=== PATIENT | male | born 1975 | race American Indian/Alaskan Native ===

== ENCOUNTER 2020-05-20 14:36 | Emergency (ER) | payer SELFPAY ==
--- NOTE | 2020-05-20 14:46 | Event Note ---
ED Screening Note ED Screening Note: ss chest pressure htn- on norvasc father just of covid hx anxiety smoker drinker tachycardia psh none has never had card kaur This initial assessment/diagnostic orders/clinical plan/treatment(s) is/are subject to change based on patients health status, clinical progression and re- assessment by fellow clinical providers in the ED. Further treatment and workup at subsequent clinical providers discretion. Patient/guardian urged not to elope from the ED as their condition may be serious if not clinically assessed and managed. Initial orders include: ro acs
[2020-05-20 15:35] LABS: Bilirubin,Urine NEG (Negative); Blood,Urine SM (Negative); Color,Urine Yellow (Yellow); Mucus,Urine FEW /HPF; Protein,Urine <15 mg/dL mg/dL (Negative); Urobilinogen,Urine < 2.0 mg/dL (<2.0); WBC,Urine < 1.0 /HPF (0.0-6.0)
--- NOTE | 2020-05-20 15:42 | XRay Report ---
CHEST 2 VIEWS INDICATION: MAIN. COMPARISON: None FINDINGS: Support devices: None. Heart: Within normal limits. Lungs/pleura: No acute air space or interstitial disease. No pneumothorax. Additional findings: None. IMPRESSION: No acute findings. Signer Name: Sg Ribeiro Jr, MD Signed: 05/20/2020 3:37 PM Workstation Name: [id number]
[2020-05-20 16:01] LABS: Basophils # (Auto) 0.1 K/mm3 (0.0-0.1); Basophils % (Auto) 0.6 % (0.0-1.8); Eosinophils # (Auto) 0.3 K/mm3 (0.0-0.4); Eosinophils % (Auto) 3.1 % (0.0-4.3); Hemoglobin 17.5 gm/dl (11.8-15.2); Lymphocytes % (Auto) 27.1 % (13.4-35.0); Mean Corpuscular HGB Conc 35 % (32-34); Mean Corpuscular Volume 92 fl (84-94); Monocytes # (Auto) 0.6 K/mm3 (0.0-0.8); Monocytes % (Auto) 5.6 % (0.0-7.3); Platelet Count 245 K/mm3 (140-440); Red Blood Count 5.44 M/mm3 (3.65-5.03); Red Cell Distribution Width 13.3 % (13.2-15.2)
[2020-05-20 16:24] LABS: Alanine Aminotransferase 71 units/L (7-56); Albumin 4.6 g/dL (3.9-5); BUN/Creatinine Ratio 13; Blood Urea Nitrogen 10 mg/dL (9-20); Calcium 9.3 mg/dL (8.4-10.2); Hemolysis Index 13
[2020-05-20] MEDS ORDERED: ZIPRASIDONE MESYLATE 20 MG VIAL IM ONE (20:19)
[2020-05-20] MEDS ORDERED: hydrOXYzine PAMOATE 25 MG CAP PO ONE (21:20)
--- NOTE | 2020-05-20 21:49 | Emergency Department Report ---
ED Chest Pain HPI - General Chief Complaint: Chest Pain Stated Complaint: HBP/CHEST PAIN Time Seen by Provider: 05/20/20 14:45 Source: patient Mode of arrival: Ambulatory Limitations: No Limitations - History of Present Illness Initial Comments: 44-year-old male with a past medical history of hypertension and anxiety presents to the hospital complaining of chest pain and elevated BP since yesterday. Patient states he checks his blood pressure on a daily basis. Blood pressure has been reading high yesterday and today. Since yesterday he has had a constant 10/10 headache and constant choking feeling to his throat and upper chest causing him to feel short of breath. Symptoms somewhat aggravated by activity. Patient is compliant with his Norvasc 10 mg every morning with last dose this morning. Patient has nausea without vomiting, diaphoresis, recent travel, calf tenderness, leg edema, history of PE/DVT. He does endorse that he has been more anxious lately. In the past he has been on Klonopin. However, since moving here from [place] 9 months ago he has not been able to establish a primary care doctor to be prescribed medication. He has experienced the of multiple family members due to Covid in [place] which is causing him more frustration, anger, and anxiety. Patient does smoke cigarettes. Patient requesting medication for anxiety. - Related Data Previous Rx's Medication Instructions Recorded Last Taken Type Aspirin 325 mg PO QDAY #30 tablet 05/20/20 Unknown Rx Ibuprofen [Motrin] 800 mg PO Q8HR PRN #20 tablet 05/20/20 Unknown Rx hydrOXYzine PAMOATE [Vistaril] 50 mg PO Q6HR PRN #20 capsule 05/20/20 Unknown Rx Allergies Allergy/AdvReac Type Severity Reaction Status Date / Time No Known Allergies Allergy Verified 05/20/20 21:21 Heart Score - HEART Score History: Slightly suspicious EKG: Normal Age: 45-65 Risk factors: > 3 risk factors or hx of atherosclerotic disease Troponin: < normal limit HEART Score: 3 ED Review of Systems ROS: Stated complaint: HBP/CHEST PAIN Other details as noted in HPI Comment: All other systems reviewed and negative ED Past Medical Hx - Past Medical History Hx Hypertension: Yes - Surgical History Past Surgical History?: No - Social History Smoking Status: Never Smoker Substance Use Type: None - Medications Home Medications: Home Medications Medication Instructions Recorded Confirmed Last Taken Type Aspirin 325 mg PO QDAY #30 tablet 05/20/20 Unknown Rx Ibuprofen [Motrin] 800 mg PO Q8HR PRN #20 tablet 05/20/20 Unknown Rx hydrOXYzine PAMOATE [Vistaril] 50 mg PO Q6HR PRN #20 capsule 05/20/20 Unknown Rx ED Physical Exam - General Limitations: No Limitations - Other Other exam information: General: No acute distress Head: Atraumatic Eyes: normal appearance ENT: Moist mucous membranes Neck: Normal appearance, no midline tenderness Chest: Clear to auscultation bilaterally CV: Regular rate and rhythm Abdomen: Soft, normal bowel sounds, nontender, nondistended, no rebound or guarding Back: Normal inspection Extremity: Normal inspection, full range of motion Neuro: Alert O x 3, no facial asymmetry, speech clear, no gross motor sensory deficit Psych: Appropriate behavior Skin: No rash ED Course Vital Signs 05/20/20 05/20/20 05/20/20 14:44 21:04 21:16 Temperature 98.0 F 98 F Pulse Rate 125 H Respiratory 18 14 Rate Blood Pressure 187/112 Blood Pressure 136/81 [Left] O2 Sat by Pulse 99 99 97 Oximetry 05/20/20 05/20/20 05/20/20 21:38 21:46 22:00 Temperature Pulse Rate 80 74 76 Respiratory 17 13 12 Rate Blood Pressure 137/86 137/86 137/86 Blood Pressure [Left] O2 Sat by Pulse 99 98 98 Oximetry 05/20/20 05/20/20 05/20/20 22:16 22:25 22:31 Temperature Pulse Rate 74 74 Respiratory 13 18 14 Rate Blood Pressure 137/86 148/91 Blood Pressure [Left] O2 Sat by Pulse 99 96 Oximetry 05/20/20 05/20/20 05/20/20 22:45 22:55 23:00 Temperature Pulse Rate 75 69 Respiratory 17 18 13 Rate Blood Pressure 138/93 123/85 Blood Pressure [Left] O2 Sat by Pulse 97 98 Oximetry 05/20/20 05/20/20 05/20/20 23:15 23:30 23:43 Temperature 98 F Pulse Rate 74 99 H 82 Respiratory 10 L 18 16 Rate Blood Pressure 136/83 148/97 Blood Pressure 151/89 [Left] O2 Sat by Pulse 95 95 98 Oximetry - Reevaluation(s) Reevaluation #1: 05/20/20 21:30 Repeat vital signs after placed on research nutritionist as per nurse BP 136/81, heart rate 84, respiratory rate 14, satting 99% on room air CARLOS score - Carlos Score Age > 65: (0) No Aspirin use within the Past 7 Days: (0) No 3 or more CAD Risk Factors: (1) Yes 2 or more Angina events in past 24 hrs: (1) Yes Known CAD with more than 50% Stenosis: (0) No Elevated Cardiac Markers: (0) No ST Deviation Greater than 0.5mm: (0) No CARLOS Score: 2 ED Medical Decision Making - Lab Data Result diagrams: 05/20/20 15:36 05/20/20 15:36 Lab Results 05/20/20 05/20/20 05/20/20 Range/Units 14:59 15:36 15:36 WBC 10.9 (4.5-11.0) K/mm3 RBC 5.44 H (3.65-5.03) M/mm3 Hgb 17.5 H (11.8-15.2) gm/dl Hct 50.0 H (35.5-45.6) % MCV 92 (84-94) fl MCH 32 (28-32) pg MCHC 35 H (32-34) % RDW 13.3 (13.2-15.2) % Plt Count 245 (140-440) K/mm3 Lymph % (Auto) 27.1 (13.4-35.0) % [place] % (Auto) 5.6 (0.0-7.3) % Eos % (Auto) 3.1 (0.0-4.3) % Baso % (Auto) 0.6 (0.0-1.8) % Lymph # (Auto) 3.0 (1.2-5.4) K/mm3 [place] # (Auto) 0.6 (0.0-0.8) K/mm3 Eos # (Auto) 0.3 (0.0-0.4) K/mm3 Baso # (Auto) 0.1 (0.0-0.1) K/mm3 Seg Neutrophils % 63.6 (40.0-70.0) % Seg Neutrophils # 7.0 (1.8-7.7) K/mm3 D-Dimer (0-234) ng/mlDDU Sodium 141 (137-145) mmol/L Potassium 4.4 (3.6-5.0) mmol/L Chloride 103.6 (98-107) mmol/L Carbon Dioxide 24 (22-30) mmol/L Anion Gap 18 mmol/L BUN 10 (9-20) mg/dL Creatinine 0.8 (0.8-1.3) mg/dL Estimated GFR > 60 ml/min BUN/Creatinine Ratio 13 % Glucose 116 H (75-100) mg/dL Calcium 9.3 (8.4-10.2) mg/dL Total Bilirubin 0.30 (0.1-1.2) mg/dL AST 43 H (5-40) units/L ALT 71 H (7-56) units/L Alkaline Phosphatase 98 (35-129) units/L Troponin T < 0.010 (0.00-0.029) ng/mL Total Protein 7.5 (6.3-8.2) g/dL Albumin 4.6 (3.9-5) g/dL Albumin/Globulin Ratio 1.6 % TSH (0.270-4.200) mlU/mL Free T4 (0.76-1.46) ng/dL Urine Color Yellow (Yellow) Urine Turbidity Clear (Clear) Urine pH 6.0 (5.0-7.0) Ur Specific [place] 1.011 (1.003-1.030) Urine Protein <15 mg/dl (Negative) mg/dL Urine Glucose (UA) Neg (Negative) mg/dL Urine Ketones Neg (Negative) mg/dL Urine Blood Sm (Negative) Urine Nitrite Neg (Negative) Urine Bilirubin Neg (Negative) Urine Urobilinogen < 2.0 (<2.0) mg/dL Ur Leukocyte Esterase Neg (Negative) Urine WBC (Auto) < 1.0 (0.0-6.0) /HPF Urine RBC (Auto) 1.0 (0.0-6.0) /HPF Urine Mucus Few /HPF 05/20/20 05/20/20 05/20/20 Range/Units 20:48 21:28 21:28 WBC (4.5-11.0) K/mm3 RBC (3.65-5.03) M/mm3 Hgb (11.8-15.2) gm/dl Hct (35.5-45.6) % MCV (84-94) fl MCH (28-32) pg MCHC (32-34) % RDW (13.2-15.2) % Plt Count (140-440) K/mm3 Lymph % (Auto) (13.4-35.0) % [place] % (Auto) (0.0-7.3) % Eos % (Auto) (0.0-4.3) % Baso % (Auto) (0.0-1.8) % Lymph # (Auto) (1.2-5.4) K/mm3 [place] # (Auto) (0.0-0.8) K/mm3 Eos # (Auto) (0.0-0.4) K/mm3 Baso # (Auto) (0.0-0.1) K/mm3 Seg Neutrophils % (40.0-70.0) % Seg Neutrophils # (1.8-7.7) K/mm3 D-Dimer 178.11 (0-234) ng/mlDDU Sodium (137-145) mmol/L Potassium (3.6-5.0) mmol/L Chloride (98-107) mmol/L Carbon Dioxide (22-30) mmol/L Anion Gap mmol/L BUN (9-20) mg/dL Creatinine (0.8-1.3) mg/dL Estimated GFR ml/min BUN/Creatinine Ratio % Glucose (75-100) mg/dL Calcium (8.4-10.2) mg/dL Total Bilirubin (0.1-1.2) mg/dL AST (5-40) units/L ALT (7-56) units/L Alkaline Phosphatase (35-129) units/L Troponin T < 0.010 (0.00-0.029) ng/mL Total Protein (6.3-8.2) g/dL Albumin (3.9-5) g/dL Albumin/Globulin Ratio % TSH 2.490 (0.270-4.200) mlU/mL Free T4 1.29 (0.76-1.46) ng/dL Urine Color (Yellow) Urine Turbidity (Clear) Urine pH (5.0-7.0) Ur Specific [place] (1.003-1.030) Urine Protein (Negative) mg/dL Urine Glucose (UA) (Negative) mg/dL Urine Ketones (Negative) mg/dL Urine Blood (Negative) Urine Nitrite (Negative) Urine Bilirubin (Negative) Urine Urobilinogen (<2.0) mg/dL Ur Leukocyte Esterase (Negative) Urine WBC (Auto) (0.0-6.0) /HPF Urine RBC (Auto) (0.0-6.0) /HPF Urine Mucus /HPF - EKG Data -: EKG Interpreted by Me ( Left atrial enlargement with possible biatrial enlargement) EKG shows normal: sinus rhythm, ST-T waves (No STEMI or LVH.) Rate: normal - EKG Data When compared to previous EKG there are: previous EKG unavailable 05/20/20 23:54 repaet ekg at 23:27 without acute findings - Radiology Data Radiology results: report reviewed cxr: naf ct head: naf reports reviewed - Medical Decision Making Patient initially presented to hospital with complaints of 2 days of elevated BP, chest accompaniment, throat tightness, shortness of breath, and headache which she relates to elevated BP. Patient initially presented here tachycardic with elevated BP. He also reports of anxiety with exacerbation of symptoms due to stress. Repeat vital signs after my initial evaluation showed dramatic improvement compared to triage vitals. Patient treated in the ED with 50 of Vistaril for anxiety and Toradol IM for pain. Patient is vital signs remained in acceptable range with only very mild hypertension without recurrent tachycardia or signs of hypoxia. EKG negative for acute ischemic findings x2. Troponin negative x2. Patient has a heart score less than 4. Patient also has low risk for DVT/PE unremarkable D-dimer and normal thyroid function test. Highly suspect that patient symptoms are related to anxiety. Patient will be prescribed Vistaril, daily aspirin due to cardiac risk factors, and outpatient follow-up with PMD, cardiology, psychiatry will be recommended. Critical Care Time: No Critical care attestation.: If time is entered above; I have spent that time in minutes in the direct care of this critically ill patient, excluding procedure time. ED Disposition Clinical Impression: Chest pain, atypical, Uncontrolled hypertension, Headache, Anxiety Disposition: - TO HOME OR SELFCARE Is pt being admited?: No Does the pt Need Aspirin: No Condition: Stable Instructions: Chest Pain (ED), Hypertension (ED), Nonspecific Chest Pain, Adult, Hypertension, Adult, [id number], Managing Anxiety, Adult Additional Instructions: Take the medication as prescribed. Continue your blood pressure medication. Follow-up with your doctor or doctor/clinic provided. Return if symptoms worsen as indicated by your discharge instructions. Prescriptions: Aspirin 325 mg PO QDAY #30 tablet Ibuprofen [Motrin] 800 mg PO Q8HR PRN #20 tablet PRN Reason: Pain , Severe (7-10) hydrOXYzine PAMOATE [Vistaril] 50 mg PO Q6HR PRN #20 capsule PRN Reason: Anxiety Referrals: BERHANE RAMIREZ MD [Staff Physician] - 3-5 Days (Cardiology) NIKOLAY ROMERO MD [Staff Physician] - 3-5 Days (Primary care doctor) [facility] [Provider Group] - 3-5 Days (Primary care clinic) [facility] [Outside] - 3-5 Days (Psychiatry) Time of Disposition: 23:55
[2020-05-20] MEDS ORDERED: KETOROLAC 60 MG/2 ML INJ IM ONE (21:55)
--- NOTE | 2020-05-20 22:05 | Cat Scan Report ---
NONENHANCED CT SCAN OF THE HEAD: INDICATION / CLINICAL INFORMATION: 44 years Male; Patient complains of a headache, uncontrolled hypertension. TECHNIQUE: Routine CT head without contrast. All CT scans at this location are performed using CT dos e reduction for ALARA by means of automated exposure control. COMPARISON: None. FINDINGS: BRAIN / INTRACRANIAL CONTENTS: No acute hemorrhage, mass effect, midline shift, hydrocephalus, or acu te, large territorial infarct. No chronic infarct or focal atrophy. Normal brain volume and ventricul ar/sulcal size for age. No significant white matter abnormality. CRANIOCERVICAL JUNCTION: No significant abnormality. ORBITS: No significant abnormality of visualized orbits. SINUSES / MASTOIDS: Mucosal thickening in the left anterior ethmoid air cells and in the sphenoid sin us ADDITIONAL FINDINGS: None. IMPRESSION: No focal mass, hemorrhage, hydrocephalus, or acute, large territorial infarct. Signer Name: Radha Ayala MD Signed: 05/20/2020 10:01 PM Workstation Name: [id number]
[2020-05-20 23:19] LABS: Free T4 (Free Thyroxine) 1.29 ng/dL (0.76-1.46)
[2020-05-20 23:44] VITALS: BP 151/89
== END 2020-05-21 | disposition home or self-care (01) ==
LOC: ED 14:36
DX: I10 Essential (primary) hypertension (principal); F41.9 Anxiety disorder, unspecified; R51.9 Headache, unspecified; R07.89 Other chest pain; Z79.899 Other long term (current) drug therapy
CPT/HCPCS: 36415; 70450; 71046; 80053; 81001; 84439; 84443; 84484; 85025; 85379; 93005; 96372; 99284; J1885; Q0177; J3486

== ENCOUNTER 2021-12-11 15:10 | Observation (INO) | payer SELFPAY ==
[2021-12-11] MEDS ORDERED: NALOXONE 2 MG/2 ML INJ IV ONE (15:47)
[2021-12-11] MEDS ORDERED: NALOXONE 0.4 MG/1 ML INJ IV PRN (15:47)
[2021-12-11] MEDS ORDERED: SODIUM CHLORIDE 0.9% 1000 ML 2,000 ML IV ONE (16:12)
--- NOTE | 2021-12-11 16:20 | XRay Report ---
CHEST 1 VIEW 12/11/2021 3:10 PM INDICATION / CLINICAL INFORMATION: Altered Mental Status. COMPARISON: 05/20/2020 FINDINGS: SUPPORT DEVICES: None. HEART / MEDIASTINUM: No significant abnormality. LUNGS / PLEURA: There is interstitial prominence throughout the lungs. No pneumothorax. ADDITIONAL FINDINGS: No significant additional findings. IMPRESSION: 1. Interstitial prominence which can be seen with atypical infectious process versus pulmonary edema is interstitial lung disease. Signer Name: Sedrick Parker DO Signed: 12/11/2021 4:16 PM Workstation Name: [id number]
--- NOTE | 2021-12-11 16:34 | Emergency Department Report ---
ED General Adult HPI - General Chief complaint: Altered Mental Status Stated complaint: ALTER MENTAL Time Seen by Provider: 12/11/21 15:43 Source: EMS (Verbal report received from emergency medical services. EMS documentation not available at time of chart dictation ), RN notes reviewed, old records reviewed Mode of arrival: Stretcher Limitations: Altered Mental Status - History of Present Illness Initial comments: The patient was evaluated in the emergency department for symptoms described in the history of present illness. He/she was evaluated in the context of the global COVID-19 pandemic, which necessitated consideration that the patient luci ht be at risk for infection with the virus that causes COVID-19. Institutional protocols and algorithms that pertain to the evaluation of patients at risk for COVID-19 are in a state of rapid change based on information released by regulatory bodies including the CDC and federal and state organizations. These policies and algorithms were followed during the patient's care in the emergency department. Please note that these policies, procedures and recommendations changed on a rapid basis. This is a 46-year-old gentleman who was brought to the hospital by emergency medical services. Patient confused and altered History is obtained from EMS. EMS reports that they were called for an ind ividual who was tripoding on his legs, In a parking lot, and altered. EMS reports unremarkable vital signs in the field. He does not know who called 911. EMS reports the patient is ambulatory with assistance. In the emergency room, the patient is sleepy but arousable. He groans. He moves 4 extremities Patient is not accompanied by friends or family at this time for collateral information/additional information No additional history is available at this time. Patient does not make any c omplaint, and he does not describe the qualitative nature of his symptoms, exacerbating factors relieving factors or aggravating factors. -: unknown - Related Data Previous Rx's Medication Instructions Recorded Last Taken Type Aspirin 325 mg PO QDAY #30 tablet 05/20/20 Unknown Rx Ibuprofen [Motrin 800 MG tab] 800 mg PO Q8HR PRN #20 tablet 05/20/20 Unknown Rx hydrOXYzine PAMOATE [Vistaril] 50 mg PO Q6HR PRN #20 capsule 05/20/20 Unknown Rx Allergies Allergy/AdvReac Type Severity Reaction Status Date / Time No Known Allergies Allergy Verified 05/20/20 21:21 ED Review of Systems ROS: Stated complaint: ALTER MENTAL Other details as noted in HPI Comment: Unobtainable due to pts medical conditions ED Past Medical Hx - Past Medical History Hx Hypertension: Yes - Social History Smoking Status: Never Smoker Substance Use Type: None - Medications Home Medications: Home Medications Medication Instructions Recorded Confirmed Last Taken Type Aspirin 325 mg PO QDAY #30 tablet 05/20/20 Unknown Rx Ibuprofen [Motrin 800 MG tab] 800 mg PO Q8HR PRN #20 tablet 05/20/20 Unknown Rx hydrOXYzine PAMOATE [Vistaril] 50 mg PO Q6HR PRN #20 capsule 05/20/20 Unknown Rx ED Physical Exam - General Limitations: Altered Mental Status General appearance: lethargic - Head Head exam: Present: atraumatic, normocephalic - Eye Eye exam: Present: normal appearance. Absent: nystagmus - ENT ENT exam: Present: normal exam, normal orophraynx, mucous membranes moist, normal external ear exam - Neck Neck exam: Present: normal inspection, full ROM. Absent: tenderness, meningismus - Respiratory Respiratory exam: Present: normal lung sounds bilaterally. Absent: respiratory distress, wheezes, rales, rhonchi, stridor, decreased breath sounds - Cardiovascular Cardiovascular Exam: Present: regular rate, normal rhythm, normal heart sounds. Absent: bradycardia, tachycardia, irregular rhythm, systolic murmur, diastolic murmur, rubs, gallop - GI/Abdominal GI/Abdominal exam: Present: soft. Absent: distended, tenderness, guarding, rebound, rigid, pulsatile mass - Rectal Rectal exam: Present: normal inspection - exam: Present: normal inspection External exam: Present: normal external exam - Extremities Exam Extremities exam: Present: normal inspection, other (2+ pulses noted in the bilateral upper and lower extremities. There is no palpable cord. negative Homans sign. Muscular compartments are soft. The pelvis is stable.). Absent: pedal edema, calf tenderness - Back Exam Back exam: Present: normal inspection. Absent: tenderness, CVA tenderness (R), CVA tenderness (L), paraspinal tenderness, vertebral tenderness - Neurological Exam Neurological exam: Present: altered, other (The patient is listless and sleepy. The patient is arousable. The patient is protecting his airway. The patient moves 4 extremities) - Skin Skin exam: Present: warm, dry, intact, normal color. Absent: rash ED Course Vital Signs 12/11/21 12/11/21 12/11/21 15:24 15:43 15:45 Temperature 97.3 F L Pulse Rate 90 80 Respiratory 18 11 L 12 Rate Blood Pressure 87/57 Blood Pressure 125/82 [Left] O2 Sat by Pulse 96 92 92 Oximetry 12/11/21 12/11/21 12/11/21 16:00 16:15 16:31 Temperature Pulse Rate 77 76 70 Respiratory 12 12 23 Rate Blood Pressure 79/43 79/43 79/43 Blood Pressure [Left] O2 Sat by Pulse 87 90 92 Oximetry 12/11/21 12/11/21 12/11/21 16:45 17:01 17:16 Temperature Pulse Rate 68 70 69 Respiratory 16 15 15 Rate Blood Pressure 105/62 79/43 105/62 Blood Pressure [Left] O2 Sat by Pulse 93 91 92 Oximetry 12/11/21 12/11/21 12/11/21 17:31 17:45 18:01 Temperature Pulse Rate 72 71 75 Respiratory 14 16 14 Rate Blood Pressure 79/43 154/88 105/62 Blood Pressure [Left] O2 Sat by Pulse 95 93 Oximetry 12/11/21 12/11/21 12/11/21 18:15 18:31 18:45 Temperature Pulse Rate 74 76 78 Respiratory 14 12 17 Rate Blood Pressure 105/62 105/62 119/74 Blood Pressure [Left] O2 Sat by Pulse 94 93 92 Oximetry 12/11/21 12/11/21 12/11/21 19:01 19:15 19:31 Temperature Pulse Rate 76 77 80 Respiratory 14 14 14 Rate Blood Pressure 119/74 119/74 119/74 Blood Pressure [Left] O2 Sat by Pulse 93 93 92 Oximetry 12/11/21 12/11/21 12/11/21 19:45 20:00 20:16 Temperature Pulse Rate 77 78 77 Respiratory 12 12 13 Rate Blood Pressure 131/77 119/74 Blood Pressure [Left] O2 Sat by Pulse 92 93 94 Oximetry 12/11/21 12/11/21 12/11/21 20:30 20:45 21:00 Temperature Pulse Rate 77 76 77 Respiratory 11 L 13 14 Rate Blood Pressure 131/77 140/83 140/83 Blood Pressure [Left] O2 Sat by Pulse 97 98 95 Oximetry 12/11/21 12/11/21 12/11/21 21:16 21:30 21:45 Temperature Pulse Rate 79 78 75 Respiratory 12 13 12 Rate Blood Pressure 140/83 140/83 134/81 Blood Pressure [Left] O2 Sat by Pulse 94 94 98 Oximetry 12/11/21 12/11/21 12/11/21 22:00 22:10 22:34 Temperature Pulse Rate 74 71 82 Respiratory 12 12 Rate Blood Pressure 134/81 134/81 Blood Pressure [Left] O2 Sat by Pulse 94 98 99 Oximetry - Reevaluation(s) Reevaluation #1: 12/11/21 16:37 Differential diagnosis, including but not limited to: Overdose, intoxication, closed head injury, cervical spine injury, pneumonia/pneumonitis/aspiration Assessment and plan: 46-year-old gentleman with altered mental status, suspici ous for intoxication. He is breathing spontaneously, not hypoxic, not stridulous, and protecting airway at this time. N.p.o., aspiration precautions, head of bed elevation, obtain appropriate labora tory studies, noncontrast CT scan brain and cervical spine. X-ray of chest obtained, nonspecifically abnormal, obtain noncontrast CT scan of chest to better delineate. Reassess after initial diagnostics have resulted. Start IV fluids and supportive care. Order as needed Narcan Reevaluation #2: 12/11/21 19:20 CT scan brain and cervical spine negative for acute traumatic findings. CT scan of the chest reviewed and appreciated. Clinically, do not suspect volume overload, but rather, atelectasis and/or possible pneumonitis. Daughter, godmother, at the bedside, and on the phone; Ms. Violet Rosa [phone] As per patient's , who is currently in [place], the patient has a history of hypertension, and opioid abuse. She reports that he is currently in a rehabilitation program where he receives a medication called "lean." As per the patient's , she further reports that the patient indicated that if he were ever hospitalized and unresponsive, it is "because he is taking a medicine like Percocet, but that is a downer." Patient received Narcan in the department, without change. Patient was not cooperative with arterial blood gas. Patient protecting airway at this time. We will not sedate the patient to obtain arterial blood gas, as risks outweigh benefits O2 sat 93 to 94% on room air. We will give trial dose of Lasix. Recommend admission to the medical service for presumed toxic metabolic encephalopathy. Family is agreeable to this plan of care. Family also requesting evaluation for detox. We will place mental health cons ultation once patient is more awake, alert and sober. Dr Briana Braxton to accept On behalf of [facility] physician, Dr. Bojorquez 12/11/21 19:23 ED Medical Decision Making - Lab Data Result diagrams: 12/11/21 16:09 12/11/21 16:09 Vital Signs 12/11/21 15:24 Temperature 97.3 F L Pulse Rate 90 Respiratory 18 Rate Blood Pressure 125/82 [Left] O2 Sat by Pulse 96 Oximetry - EKG Data -: EKG Interpreted by Ne EKG shows normal: sinus rhythm Rate: normal - EKG Data When compared to previous EKG there are: previous EKG unavailable Interpretation: unchanged when compared t (Unable to view and accessed prior EKG) 12/11/21 16:33 The EKG is interpreted at 15: 49 Sinus rhythm, with a rate of 82 bpm. Rightward axis deviation. QTC prolonged at 504 ms. There is motion artifact. There is atrial enlargement. This is an abnormal EKG. This is not a STEMI. - Radiology Data Radiology results: pending, report reviewed, image reviewed CHEST 1 VIEW 12/11/2021 3:10 PM INDICATION / CLINICAL INFORMATION: Altered Mental Status. COMPARISON: 05/20/2020 FINDINGS: SUPPORT DEVICES: None. HEART / MEDIASTINUM: No significant abnormality. LUNGS / PLEURA: There is interstitial prominence throughout the lungs. No pneumothorax. ADDITIONAL FINDINGS: No significant additional findings. IMPRESSION: 1. Interstitial prominence which can be seen with atypical infectious process versus pulmonary edema is interstitial lung disease. Signer Name: Sedrick Parker DO Signed: 12/11/2021 3:16 PM Workstation Name: [id number] CT CERVICAL SPINE WITHOUT CONTRAST INDICATION: intox trauma. TECHNIQUE: Axial CT images of the spine were obtained. Sagittal and coronal reformatted images were produced. All CT scans at this location are performed using CT dose reduction for ALARA by means of automated exposure control. COMPARISON: None available. FINDINGS: ACUTE FRACTURE(S) OR SUBLUXATION: None. SPINAL DEGENERATIVE CHANGES: No significant degenerative changes. PARASPINAL SOFT TISSUES: No soft tissue swelling or other acute abnormalities. ADDITIONAL FINDINGS: No significant additional findings. IMPRESSION: 1. No acute fracture or subluxation in the spine in neutral position. Signer Name: Owen Leon MD Signed: 12/11/2021 4:36 PM Workstation Name: [id number] CT head/brain wo con INDICATION: Altered Mental Status. TECHNIQUE: Routine CT head without contrast. All CT scans at this location are performed using CT dose reduction for ALARA by means of automated exposure control. COMPARISON: Head CT on 05/20/2020 FINDINGS: BRAIN / INTRACRANIAL CONTENTS: No acute hemorrhage, mass effect, midline shift, or hydrocephalus. No appreciable acute large territorial or lacunar infarct. No chronic infarct or focal atrophy. Normal brain volume and ventricular/sulcal size for age. ORBITS: No significant abnormality of visualized orbits. SINUSES / MASTOIDS: No significant abnormality of visualized sinuses and mastoid air cells. ADDITIONAL FINDINGS: None. IMPRESSION: 1. No acute intracranial abnormality. Signer Name: Owen Leon MD Signed: 12/11/2021 4:36 PM Workstation Name: [id number] CT chest wo con INDICATION / CLINICAL INFORMATION: Abnormal x-ray chest, question aspiration. TECHNIQUE: Axial CT imaging of the thorax was obtained without contrast. Coronal and sagittal reformatted imaging obtained and reviewed. All CT scans at this location are performed using CT dose reduction for ALARA by means of automated exposure control. COMPARISON: Earlier chest radiograph 12/11/2021 FINDINGS: CT thorax without IV contrast was obtained. For noncontrast exam I do not appreciate any significant mediastinal or hilar adenopathy. Thoracic aorta is intact. Heart is borderline enlarged. No pericardial effusion. No coronary artery calcification. The lungs are grossly clear. Mild interstitial prominence is most likely related to pulmonary vascular congestion. No evidence of pneumonia or pleural effusion. No visible pulmonary mass. Images of the upper abdomen do not demonstrate any acute finding. Review of osseous structures is unremarkable. No visible fracture. IMPRESSION: 1. Mild interstitial prominence bilaterally is most likely due to pulmonary vascular congestion. 2. I see no other significant finding within the thorax. Signer Name: Chyna Erickson MD Signed: 12/11/2021 4:47 PM Workstation Name: [id number] Critical Care Time: Yes Critical care time in (mins) excluding proc time.: 35 Critical care attestation.: If time is entered above; I have spent that time in minutes in the direct care of this critically ill patient, excluding procedure time. ED Disposition Clinical Impression: Acute encephalopathy, Opioid abuse, Abnormal chest CT Disposition: 09 ADMITTED INPATIENT Is pt being admited?: Yes Does the pt Need Aspirin: No Condition: Good
[2021-12-11 16:42] LABS: Hematocrit 45.5 % (35.5-45.6); Hemoglobin 15.6 gm/dl (11.8-15.2); Mean Corpuscular HGB Conc 34 % (32-34); Mean Corpuscular Volume 94 fl (84-94); Platelet Count 185 K/mm3 (140-440); Red Blood Count 4.84 M/mm3 (3.65-5.03); Red Cell Distribution Width 13.5 % (13.2-15.2)
[2021-12-11 16:56] LABS: INR 0.92 (0.87-1.13)
[2021-12-11 16:59] LABS: Alanine Aminotransferase 28 units/L (7-56); Albumin 4.2 g/dL (3.9-5); BUN/Creatinine Ratio 16; Blood Urea Nitrogen 14 mg/dL (9-20); Calcium 8.9 mg/dL (8.4-10.2); Hemolysis Index 4
--- NOTE | 2021-12-11 17:40 | Cat Scan Report ---
CT head/brain wo con INDICATION: Altered Mental Status. TECHNIQUE: Routine CT head without contrast. All CT scans at this location are performed using CT dos e reduction for ALARA by means of automated exposure control. COMPARISON: Head CT on 05/20/2020 FINDINGS: BRAIN / INTRACRANIAL CONTENTS: No acute hemorrhage, mass effect, midline shift, or hydrocephalus. No appreciable acute large territorial or lacunar infarct. No chronic infarct or focal atrophy. Normal b rain volume and ventricular/sulcal size for age. ORBITS: No significant abnormality of visualized orbits. SINUSES / MASTOIDS: No significant abnormality of visualized sinuses and mastoid air cells. ADDITIONAL FINDINGS: None. IMPRESSION: 1. No acute intracranial abnormality. Signer Name: Owen Leon MD Signed: 12/11/2021 5:36 PM Workstation Name: [id number]
--- NOTE | 2021-12-11 17:41 | Cat Scan Report ---
CT CERVICAL SPINE WITHOUT CONTRAST INDICATION: intox trauma. TECHNIQUE: Axial CT images of the spine were obtained. Sagittal and coronal reformatted images were produced. Al l CT scans at this location are performed using CT dose reduction for ALARA by means of automated exp osure control. COMPARISON: None available. FINDINGS: ACUTE FRACTURE(S) OR SUBLUXATION: None. SPINAL DEGENERATIVE CHANGES: No significant degenerative changes. PARASPINAL SOFT TISSUES: No soft tissue swelling or other acute abnormalities. ADDITIONAL FINDINGS: No significant additional findings. IMPRESSION: 1. No acute fracture or subluxation in the spine in neutral position. Signer Name: Owen Leon MD Signed: 12/11/2021 5:36 PM Workstation Name: [id number]
--- NOTE | 2021-12-11 17:51 | Cat Scan Report ---
CT chest wo con INDICATION / CLINICAL INFORMATION: Abnormal x-ray chest, question aspiration. TECHNIQUE: Axial CT imaging of the thorax was obtained without contrast. Coronal and sagittal reformatted imagin g obtained and reviewed. All CT scans at this location are performed using CT dose reduction for ALA RA by means of automated exposure control. COMPARISON: Earlier chest radiograph 12/11/2021 FINDINGS: CT thorax without IV contrast was obtained. For noncontrast exam I do not appreciate any significant mediastinal or hilar adenopathy. Thoracic aorta is intact. Heart is borderline enlarged. No pericardi al effusion. No coronary artery calcification. The lungs are grossly clear. Mild interstitial prominence is most likely related to pulmonary vascula r congestion. No evidence of pneumonia or pleural effusion. No visible pulmonary mass. Images of the upper abdomen do not demonstrate any acute finding. Review of osseous structures is unremarkable. No visible fracture. IMPRESSION: 1. Mild interstitial prominence bilaterally is most likely due to pulmonary vascular congestion. 2. I see no other significant finding within the thorax. Signer Name: Chyna Erickson MD Signed: 12/11/2021 5:47 PM Workstation Name: [id number]
[2021-12-11] MEDS ORDERED: FUROSEMIDE 20 MG/2 ML INJ IV ONE (19:19)
[2021-12-11] MEDS ORDERED: ONDANSETRON 4 MG/2 ML INJ IV PRN ×2 (19:25→22:24)
[2021-12-11] MEDS ORDERED: ACETAMINOPHEN 325 MG TAB PO PRN ×2 (19:25→22:24)
[2021-12-11] MEDS ORDERED: oxyCODONE /ACETAMINOPHEN 5-325MG TAB PO PRN (22:24)
[2021-12-11] MEDS ORDERED: HYDROmorphone 0.5 MG/0.5 ML INJ IV PRN (22:24)
[2021-12-11] MEDS ORDERED: ALBUTEROL 2.5 MG/3 ML NEBU IH PRN (22:24)
--- NOTE | 2021-12-11 22:31 | History and Physical Report ---
History of Present Illness Date of examination: 12/11/21 Date of admission: 12/11/21 19:25 Chief complaint: Altered mental status History of present illness: 46-year-old gentleman who was brought to the hospital by emergency medical services. Patient confused and altered History is obtained from EMS. EMS reports that they were called for an individual who was tripoding on his legs, In a parking lot, and altered. EMS reports unremarkable vital signs in the [facility]. He does not know who called 911. EMS reports the patient is ambulatory with assistance. In the emergency room, the patient is sleepy but arousable. He groans. He moves [address] scan of the head shows no acute intracranial abnormality. Chest CT shows mild interstitial prominence bilaterally is more likely due to pulmonary vascular congestion. As per patient's , who is currently in [place], the patient has a history of hypertension, and opioid abuse. She reports that he is currently in a rehabilitation program where he receives a medication called "lean." As per the patient's , she further reports that the patient indicated that if he were ever hospitalized and unresponsive, it is "because he is taking a medicine like Percocet, but that is a downer." Patient received Narcan in the department, without change Past History Past Medical History: hypertension Past Surgical History: No surgical history Social history: no significant social history, other (Opiate abuse) Family history: hypertension Medications and Allergies Allergies Allergy/AdvReac Type Severity Reaction Status Date / Time No Known Allergies Allergy Verified 05/20/20 21:21 Home Medications Medication Instructions Recorded Confirmed Last Taken Type Aspirin 325 mg PO QDAY #30 tablet 05/20/20 Unknown Rx Ibuprofen [Motrin] 800 mg PO Q8HR PRN #20 tablet 05/20/20 Unknown Rx hydrOXYzine PAMOATE [Vistaril] 50 mg PO Q6HR PRN #20 capsule 05/20/20 Unknown Rx Active Meds: Active Medications Acetaminophen (Acetaminophen 325 Mg Tab) 650 mg PO Q4H PRN PRN Reason: Pain MILD(1-3)/Fever >100.5/MOREL Acetaminophen (Acetaminophen 325 Mg Tab) 650 mg PO Q4H PRN PRN Reason: Pain MILD(1-3)/Fever >100.5/MOREL Albuterol (Albuterol 2.5 Mg/3 Ml Nebu) 2.5 mg IH Q4HRT PRN PRN Reason: Shortness Of Breath Albuterol/Ipratropium (Ipratropium/Albuterol Sulfate 3 Ml Ampul.Neb) 1 ampul IH Q6HRT DEANGELO Famotidine (Famotidine 20 Mg/2 Ml Inj) 20 mg IV BID DEANGELO Hydromorphone HCl (Hydromorphone 0.5 Mg/0.5 Ml Inj) 0.5 mg IV Q3H PRN PRN Reason: Pain , Severe (7-10) Dextrose/Sodium Chloride (D5/0.45ns) 1,000 mls @ 100 mls/hr IV DIRECT DEANGELO Naloxone HCl (Naloxone 0.4 Mg/1 Ml Inj) 0.1 mg IV Q2MIN PRN PRN Reason: Res Rate </= 8 or 02 SAT < 92% Ondansetron HCl (Ondansetron 4 Mg/2 Ml Inj) 4 mg IV Q8H PRN PRN Reason: Nausea And Vomiting Ondansetron HCl (Ondansetron 4 Mg/2 Ml Inj) 4 mg IV Q8H PRN PRN Reason: Nausea And Vomiting Oxycodone/Acetaminophen (Oxycodone /Acetaminophen 5-325mg Tab) 1 tab PO Q6H PRN PRN Reason: Pain, Moderate (4-6) Sodium Chloride (Sodium Chloride 0.9% 10 Ml Flush Syringe) 10 ml IV BID [facility] Last Admin: 12/11/21 21:30 Dose: 10 ml Sodium Chloride (Sodium Chloride 0.9% 10 Ml Flush Syringe) 10 ml IV PRN PRN PRN Reason: LINE FLUSH Sodium Chloride (Sodium Chloride 0.9% 10 Ml Flush Syringe) 10 ml IV BID [facility] Sodium Chloride (Sodium Chloride 0.9% 10 Ml Flush Syringe) 10 ml IV PRN PRN PRN Reason: LINE FLUSH Review of Systems All systems: negative Constitutional: fatigue, malaise, lethargy Exam - Constitutional Vitals: Temp Pulse Resp BP Pulse Ox 97.3 F L 74 12 134/81 94 12/11/21 15:24 12/11/21 22:00 12/11/21 22:00 12/11/21 22:00 12/11/21 22:00 General appearance: Present: no acute distress, well-nourished - EENT Eyes: Present: PERRL ENT: hearing intact, clear oral mucosa - Neck Neck: Present: supple, normal ROM - Respiratory Respiratory effort: normal Respiratory: bilateral: CTA - Cardiovascular Heart Sounds: Present: S1 & S2. Absent: rub, click - Extremities Extremities: pulses symmetrical, No edema Peripheral Pulses: within normal limits - Abdominal General gastrointestinal: Present: soft, non-tender, non-distended, normal bowel sounds Male genitourinary: Present: normal - Integumentary Integumentary: Present: clear, warm, dry - Musculoskeletal Musculoskeletal: gait normal, strength equal bilaterally - Psychiatric Psychiatric: other (Patient is altered mental status) - Neurologic Neurologic: CNII-XII intact, moves all extremities HEART Score - HEART Score Troponin: Troponin T < 0.010 ng/mL (0.00-0.029) 12/11/21 16:30 Results - Labs CBC & Chem 7: 12/11/21 16:09 12/11/21 16:09 Labs: Laboratory Last Values WBC 8.6 K/mm3 (4.5-11.0) 12/11/21 16:09 RBC 4.84 M/mm3 (3.65-5.03) 12/11/21 16:09 Hgb 15.6 gm/dl (11.8-15.2) H 12/11/21 16:09 Hct 45.5 % (35.5-45.6) 12/11/21 16:09 MCV 94 fl (84-94) 12/11/21 16:09 MCH 32 pg (28-32) 12/11/21 16:09 MCHC 34 % (32-34) 12/11/21 16:09 RDW 13.5 % (13.2-15.2) 12/11/21 16:09 Plt Count 185 K/mm3 (140-440) 12/11/21 16:09 PT 13.4 Sec. (12.2-14.9) 12/11/21 16:09 INR 0.92 (0.87-1.13) 12/11/21 16:09 Sodium 142 mmol/L (137-145) 12/11/21 16:09 Potassium 3.8 mmol/L (3.6-5.0) 12/11/21 16:09 Chloride 102.1 mmol/L (98-107) 12/11/21 16:09 Carbon Dioxide 28 mmol/L (22-30) 12/11/21 16:09 Anion Gap 16 mmol/L 12/11/21 16:09 BUN 14 mg/dL (9-20) 12/11/21 16:09 Creatinine 0.9 mg/dL (0.8-1.3) 12/11/21 16:09 Estimated GFR > 60 ml/min 12/11/21 16:09 BUN/Creatinine Ratio 16 % 12/11/21 16:09 Glucose 131 mg/dL (75-100) H 12/11/21 16:09 Calcium 8.9 mg/dL (8.4-10.2) 12/11/21 16:09 Total Bilirubin 0.30 mg/dL (0.1-1.2) 12/11/21 16:09 AST 27 units/L (5-40) 12/11/21 16:09 ALT 28 units/L (7-56) 12/11/21 16:09 Alkaline Phosphatase 87 units/L (35-129) 12/11/21 16:09 Ammonia 60.0 umol/L (25-60) 12/11/21 16:09 Total Creatine Kinase 112 units/L (55-170) 12/11/21 16:09 Troponin T < 0.010 ng/mL (0.00-0.029) 12/11/21 16:30 NT-Pro-B Natriuret Pep 58.30 pg/mL (0-450) 12/11/21 16:30 Total Protein 7.2 g/dL (6.3-8.2) 12/11/21 16:09 Albumin 4.2 g/dL (3.9-5) 12/11/21 16:09 Albumin/Globulin Ratio 1.4 % 12/11/21 16:09 TSH 2.230 mlU/mL (0.270-4.200) 12/11/21 16:09 Salicylates < 0.3 mg/dL (2.8-20.0) L 12/11/21 16:09 Acetaminophen 5.0 ug/mL (10.0-30.0) L 12/11/21 16:09 Plasma/Serum Alcohol < 0.01 % (0-0.07) 12/11/21 16:09 - Imaging and Cardiology CT scan - chest: report reviewed CT Scan - head: report reviewed Assessment and Plan VTE prophylaxis?: Mechanical Plan of care discussed with patient/family: Yes - Patient Problems (1) Acute metabolic encephalopathy Current Visit: Yes Status: Acute Plan to address problem: Admit the patient to the medical telemetry. NPO. D5 half-normal saline at the rate of 100 cc/h. Oxygen by nasal cannula 3 L/min. DuoNeb by nebulizer every 4 hours. Albuterol via nebulizer every 4 hours as needed. Reconsult neurology for evaluation. Also consult psych for evaluation (2) Hypertension Current Visit: Yes Status: Acute Plan to address problem: Hydralazine 10 mg IV every 6 hours as needed. We will monitor the blood pressure closely (3) Abnormal chest CT Current Visit: Yes Status: Acute Plan to address problem: Avoid fluid overload. We will monitor the patient closely. (4) Opioid abuse Current Visit: Yes Status: Acute Plan to address problem: Will consult psych and neurology for evaluation. We counseled the patient regarding quit taking opioid. (5) DVT prophylaxis Current Visit: Yes Status: Acute Plan to address problem: SCD for DVT prophylaxis. Pepcid 20 mg IV every 12 hours for GI prophylaxis. Patient is a full code
[2021-12-11] MEDS ORDERED: hydrALAZINE 20 MG/1 ML INJ IV PRN (22:34)
[2021-12-11] MEDS ORDERED: D5W/0.45% NACL 1,000 ML IV SCH (23:00)
[2021-12-12] MEDS ORDERED: IPRATROPIUM/ALBUTEROL SULFATE 3 ML AMPUL.NEB IH SCH (02:00)
[2021-12-12 08:15] VITALS: BP 165/101
--- NOTE | 2021-12-12 09:12 | Discharge Summary ---
Providers - Providers Date of Admission: 12/11/21 19:25 Date of discharge: 12/12/21 Attending physician: CHELSEY MIRANDA MD 12/11/21 22:24 Consult to Physician [CONS] Routine Comment: Consulting Provider: LEXUS TORRES Physician Instructions: Reason For Exam: ams 12/11/21 22:27 psychiatry consult [Consult to Mental Health] [CONS] Routine Reason For Exam: Opiate abuse Primary care physician: CIARA CAMEJO Hospitalization Reason for admission: Acute toxic metabolic encephalopathy Condition: Serious Pertinent studies: Reviewed. Procedures: None. Hospital course: Patient is a 46-year-old male past medical history of hypertension and opioid abuse who presented to the ED via EMS after being found staggering and "tripoding on his legs" in a parking lot. It is unknown who called 911 for assistance. On admission, the patient was found to be hemodynamically stable and saturating 96% on room air. Patient had unremarkable CT head noncontrast and CT cervical spine. Patient's chest x-ray and CT chest were remarkable for atelectasis with concern for possible volume overload versus infection. Patient was also acutely encephalopathic. Further information was provided by the who stated that the patient was in a drug rehabilitation center where he was introduced to new medication called "lean". Patient's labs relatively unremarkable. It is deemed that the patient was suffering from acute toxic metabolic encephalopathy. Patient was admitted for further observation. Patient has since returned to his baseline. Patient was counseled at length about cessation of illicit substances. Patient expressed understanding. Patient is medically clear for discharge. Disposition: 01 HOME / SELF CARE / HOMELESS Final Discharge Diagnosis (Prints w/discharge instructions): Acute toxic metabolic encephalopathy, hypertension, opioid dependence Time spent for discharge: 45 min Core Measure Documentation - Palliative Care Palliative Care/ Comfort Measures: Not Applicable - Core Measures Any of the following diagnoses?: none Exam - Constitutional Vitals: Temp Pulse Resp BP Pulse Ox 98.3 F 78 16 165/101 97 12/12/21 07:49 12/12/21 07:49 12/12/21 03:28 12/12/21 07:49 12/12/21 07:49 General appearance: Present: no acute distress, well-nourished - EENT Eyes: Present: PERRL, EOM intact ENT: hearing intact, clear oral mucosa, dentition normal - Neck Neck: Present: supple, normal ROM - Respiratory Respiratory effort: normal Respiratory: bilateral: CTA - Cardiovascular Rhythm: regular Heart Sounds: Present: S1 & S2 - Extremities Extremities: no ischemia, pulses intact, pulses symmetrical, No edema, normal temperature, normal color, Full ROM Peripheral Pulses: within normal limits - Abdominal General gastrointestinal: Present: soft, non-tender, non-distended, normal bowel sounds Male genitourinary: Present: deferred - Rectal Rectal Exam: deferred - Integumentary Integumentary: Present: clear, warm, dry - Musculoskeletal Musculoskeletal: strength equal bilaterally - Psychiatric Psychiatric: appropriate mood/affect, cooperative - Neurologic Neurologic: CNII-XII intact, moves all extremities - Allied Health Allied health notes reviewed: nursing Plan Activity: no restrictions Diet: low salt Additional Instructions: Patient is a 46-year-old male past medical history of hypertension and opioid abuse who presented to the ED via EMS after being found staggering and "tripoding on his legs" in a parking lot. It is unknown who ca lled 911 for assistance. On admission, the patient was found to be hemodynamically stable and saturating 96% on room air. Patient had unremarkable CT head noncontrast and CT cervical spine. Patient's chest x-ray and CT chest were remarkable for atelectasis with concern for possible volume overload versus infection. Patient was also acutely encephalopathic. Further information was provided by the who stated that the patient was in a drug rehabilitation center where he was introduced to new medication called "lean". Patient's labs relatively unremarkable. It is deemed that the patient was suffering from acute toxic metabolic encephalopathy. Patient was admitted for further observation. Patient has since returned to his baseline. Patient was counseled at length about cessation of illicit substances. Patient expressed understanding. Patient is medically clear for discharge. Care Plan Goals: Patient is medically clear for discharge. Assessment: Patient is a 46-year-old male past medical history of hypertension and opioid abuse who presented to the ED via EMS after being found staggering and "tripoding on his legs" in a parking lot. It is unknown who called 911 for assistance. On admission, the patient was found to be hemodynamically stable and saturating 96% on room air. Patient had unremarkable CT head noncontrast and CT cervical spine. Patient's chest x-ray and CT chest were remarkable for atelectasis with concern for possible volume overload versus infection. Patient was also acutely encephalopathic. Further information was provided by the who stated that the patient was in a drug rehabilitation center where he was introduced to new medication called "lean". Patient's labs relatively unremarkable. It is deemed that the patient was suffering from acute toxic metabolic encephalopathy. Patient was admitted for further observation. Patient has since returned to his baseline. Patient was counseled at length about cessation of illicit substances. Patient expressed understanding. Patient is medically clear for discharge. Follow up with: CIARA CAMEJO MD [Primary Care Provider] - 7 Days Forms: Work/School Release Form
[2021-12-12] MEDS ORDERED: FAMOTIDINE 20 MG/2 ML INJ IV SCH (10:00)
--- NOTE | 2021-12-12 14:44 | Electrocardiograph Report ---
[facility] Test Date: 2021-12-11 Test Time: 15:49:15 Pat Name: ANTELMO BAUTISTA Department: Room: A473 1 Gender: M [employer] Developer: GP : [id number] Requested By: GINGER MINER Order Number: [id number] Reading MD: Merline Esquivel Measurements Intervals [place] Rate: 82 P: 41 [place]: 152 QRS: 107 QRSD: 90 T: 56 QT: 432 QTc: 504 Interpretive Statements Sinus rhythm LAE, consider biatrial enlargement Right axis deviation Prolonged QT interval No previous ECG available for comparison Electronically Signed On 12-12-2021 14:43:53 EDT by Merline Esquivel
== END 2021-12-12 10:42 | disposition home or self-care (01) ==
LOC: ED 15:10 → 4A 19:25
PROVIDERS: ADMIT Hospitalist; ATTEND Student in an Organized Health Care Education/Training Program
DX: G93.41 Metabolic encephalopathy (principal); G92.8 Other toxic encephalopathy; I10 Essential (primary) hypertension; F11.10 Opioid abuse, uncomplicated; R93.89 Abnormal findings on diagnostic imaging of other specified body structures; R41.82 Altered mental status, unspecified; Z79.82 Long term (current) use of aspirin; Z79.899 Other long term (current) drug therapy; Z98.890 Other specified postprocedural states
CPT/HCPCS: 36415; 70450; 71045; 71250; 72125; 80053; 82140; 82550; 83880; 84443; 84484; 85027; 85610; 93005; 96361; 96374; 99291; G0378; J2310; J7030; J7070; 80320; G0480